=== PATIENT | male | born 1930 | race Caucasian/White ===

== ENCOUNTER 2017-09-29 19:47 | Inpatient (IN) | payer MEDICARE, OTHER ==
[2017-09-29] MEDS: SOD CHLORIDE 0.9% 1,000 ML IV ×2 (20:49→23:52)
[2017-09-29 21:40] LABS: ADD MAN DIFF? NO
[2017-09-29 21:45] LABS: WHITE BLOOD COUNT 10.7 10^3/ul (4.8-10.8)
[2017-09-29 21:45] LABS: BASOPHILS % 0.1 % (0.0-2.0); EOSINOPHILS % 0.1 % (0.0-7.0); HEMATOCRIT 42.6 % (42.0-52.0); HEMOGLOBIN 12.5 g/dl (14.0-18.0); LYMPHOCYTES # 1.8 10^3/ul (0.8-2.9); LYMPHOCYTES % 16.9 % (15.0-51.0); MEAN CORPUSCULAR HEMOGLOBIN 27.8 pg (29.0-33.0); MEAN CORPUSCULAR HGB CONC 29.3 g/dl (32.0-37.0); MEAN CORPUSCULAR VOLUME 94.9 fl (82.0-101.0); MEAN PLATELET VOLUME 10.2 fl (7.4-10.4); MONOCYTE # 0.4 10^3/ul (0.3-0.9); MONOCYTES % 4.1 % (0.0-11.0); NEUTROPHIL # 8.4 10^3/ul (1.6-7.5); NEUTROPHILS % 78.3 % (39.0-77.0); PLATELET COUNT 306 10^3/UL (140-415); RED BLOOD COUNT 4.49 10^6/ul (4.70-6.10); RED CELL DISTRIBUTION WIDTH 16.8 % (11.5-14.5)
[2017-09-29 21:56] LABS: ADD UMIC YES; UR ASCORBIC ACID NEGATIVE (NEGATIVE); UR BACTERIA MANY /HPF (NONE SEEN); UR BILIRUBIN (Dip) NEGATIVE (NEGATIVE); UR BLOOD (Dip) 1+ mg/dL (NEGATIVE); UR CLARITY SLIGHTLY CLOUDY (CLEAR); UR COLOR YELLOW (YELLOW); UR GLUCOSE (Dip) NEGATIVE (NEGATIVE); UR KETONES (Dip) TRACE mg/dL (NEGATIVE); UR LEUKOCYTE ESTERASE (Dip) TRACE Leu/ul (NEGATIVE); UR MUCUS FEW /HPF (NONE SEEN); UR NITRITE (Dip) POSITIVE (NEGATIVE); UR RBC 0 /HPF (0-5); UR SPECIFIC GRAVITY (Dip) 1.018 (1.003-1.030); UR TOTAL PROTEIN (Dip) 1+ mg/dl (NEGATIVE); UR UROBILINOGEN (Dip) NEGATIVE (NEGATIVE); UR WBC 10 /HPF (0-5)
[2017-09-29 22:13] LABS: AMMONIA < 9 umol/l (9-30)
[2017-09-29 22:14] LABS: LACTIC ACID 2.3 mmol/L (0.5-2.0)
[2017-09-29 22:20] LABS: AMPHETAMINE/METHAMPHETAMINE Negative (NEGATIVE); BARBITURATES Negative (NEGATIVE); BENZODIAZEPINES Negative (NEGATIVE); CANNABINOIDS Negative (NEGATIVE); COCAINE Negative (NEGATIVE); OPIATES Negative (NEGATIVE)
[2017-09-29] MEDS: CEFEPIME 1GM/50 ML (PMX) 50 ML IVPB (23:51)
[2017-09-30 00:03] LABS: ACETAMINOPHEN < 10.0 ug/ml (10.0-30.0); SALICYLATE < 1.0 mg/dl (5.0-30.0)
[2017-09-30 00:15] LABS: ETHANOL < 10.0 mg/dl
[2017-09-30 00:19] LABS: T3 UPTAKE 40.5 % (23.5-40.5); T4 (THYROXINE) 8.4 ug/dl (5.5-11.0)
[2017-09-30 00:23] LABS: ALANINE AMINOTRANSFERASE 22 IU/L (13-69); ALBUMIN 2.7 g/dl (3.3-4.9); ALBUMIN/GLOBULIN RATIO 0.55; ALKALINE PHOSPHATASE 102 IU/L (42-121); ANION GAP 13 (8-16); ASPARTATE AMINO TRANSFERASE 31 IU/L (15-46); BLOOD UREA NITROGEN 43 mg/dl (7-20); CALCIUM 8.9 mg/dl (8.4-10.2); CARBON DIOXIDE 31 mmol/L (21-31); CHLORIDE 133 mmol/L (97-110); CREATININE 1.22 mg/dl (0.61-1.24); GLUCOSE 102 mg/dl (70-220); TOTAL PROTEIN 7.6 g/dl (6.1-8.1)
[2017-09-30 00:30] LABS: SODIUM 174 mmol/L (135-144)
[2017-09-30 00:31] LABS: POTASSIUM 2.9 mmol/L (3.5-5.1)
[2017-09-30] MEDS: hydrALAzine 20 MG INJ IV (00:36)
[2017-09-30 01:02] LABS: TROPONIN-I 0.333 ng/ml (0.00-0.12)
[2017-09-30] MEDS: SOD CHLORIDE 0.9% 1,000 ML IV (01:18)
[2017-09-30] MEDS ORDERED: ASPIRIN 300 MG SUPP PR (01:19)
[2017-09-30] MEDS: POTASSIUM CHLORIDE 50 ML IVPB ×6 (01:20→13:14)
[2017-09-30] MEDS: ASPIRIN 81 MG TAB PO ×2 (01:24)
[2017-09-30] MEDS ORDERED: ASPIRIN 81 MG TAB PO (01:30)
[2017-09-30] MEDS: ASPIRIN 300 MG SUPP PR (02:18)
[2017-09-30] MEDS ORDERED: NA PHOSPHATE/BIPHOS 133 ML ENEMA PR (02:30)
[2017-09-30] MEDS ORDERED: HYDROCODONE/APAP (5/325) TAB PO (02:30)
[2017-09-30] MEDS ORDERED: morphine 2 MG INJ IV (02:30)
[2017-09-30] MEDS ORDERED: NACL 0.9% 3 ML SYG IV (02:30)
[2017-09-30] MEDS ORDERED: DOCUSATE SODIUM 100 MG CAP PO (02:30)
[2017-09-30] MEDS ORDERED: ONDANSETRON 4 MG INJ IV (02:30)
[2017-09-30] MEDS ORDERED: NITROGLYCERIN (SL) 0.4 MG TAB SL (02:30)
[2017-09-30] MEDS ORDERED: ACETAMINOPHEN 325 MG TAB PO (02:30)
[2017-09-30] MEDS: DEXTROSE 5% 1,000 ML IV ×4 (04:42→17:34)
[2017-09-30 05:07] LABS: ADD MAN DIFF? NO
[2017-09-30 05:12] LABS: WHITE BLOOD COUNT 9.8 10^3/ul (4.8-10.8)
[2017-09-30 05:12] LABS: BASOPHILS % 0.1 % (0.0-2.0); EOSINOPHILS % 0.3 % (0.0-7.0); HEMATOCRIT 33.5 % (42.0-52.0); HEMOGLOBIN 10.2 g/dl (14.0-18.0); LYMPHOCYTES # 1.3 10^3/ul (0.8-2.9); LYMPHOCYTES % 13.3 % (15.0-51.0); MEAN CORPUSCULAR HEMOGLOBIN 28.3 pg (29.0-33.0); MEAN CORPUSCULAR HGB CONC 30.4 g/dl (32.0-37.0); MEAN CORPUSCULAR VOLUME 93.1 fl (82.0-101.0); MEAN PLATELET VOLUME 9.9 fl (7.4-10.4); MONOCYTE # 0.5 10^3/ul (0.3-0.9); MONOCYTES % 4.7 % (0.0-11.0); NEUTROPHILS % 81.1 % (39.0-77.0); PLATELET COUNT 228 10^3/UL (140-415); RED CELL DISTRIBUTION WIDTH 16.8 % (11.5-14.5)
[2017-09-30 05:38] LABS: LACTIC ACID 1.2 mmol/L (0.5-2.0)
[2017-09-30 05:56] LABS: FREE T4 (FREE THYROXINE) 1.19 ng/dl (0.85-1.93)
[2017-09-30 06:10] LABS: ANION GAP 12 (8-16); BLOOD UREA NITROGEN 35 mg/dl (7-20); CALCIUM 7.8 mg/dl (8.4-10.2); CARBON DIOXIDE 27 mmol/L (21-31); CHLORIDE 137 mmol/L (97-110); CREATINE KINASE 74 IU/L (23-200); CREATININE 1.11 mg/dl (0.61-1.24); GLUCOSE 88 mg/dl (70-220); POTASSIUM 3.2 mmol/L (3.5-5.1)
[2017-09-30 06:14] LABS: SODIUM 173 mmol/L (135-144)
[2017-09-30] MEDS: CEFTRIAXONE 2 GM/50 ML (PMX) 50 ML IVPB (06:18)
[2017-09-30 06:23] LABS: CK-MB 2.95 ng/ml (0.0-2.4); TROPONIN-I 0.308 ng/ml (0.00-0.12)
[2017-09-30 09:05] LABS: CREATINE KINASE 68 IU/L (23-200)
[2017-09-30 09:18] LABS: CK INDEX 4.1
[2017-09-30 09:19] LABS: CK-MB 2.81 ng/ml (0.0-2.4); TROPONIN-I 0.311 ng/ml (0.00-0.12)
[2017-09-30] MEDS: LEVOTHYROXINE 25 MCG TAB PO (09:41)
[2017-09-30] MEDS: CYANOCOBALAMIN 500 MCG TAB PO (09:42)
[2017-09-30] MEDS: EZETIMIBE 10 MG TAB PO (09:42)
[2017-09-30] MEDS: CLOPIDOGREL 75 MG TAB PO (09:42)
[2017-09-30] MEDS: GABAPENTIN 100 MG CAP PO (09:43)
[2017-09-30] MEDS: ENOXAPARIN 60 MG/0.6 ML SYG SC (09:46)
[2017-09-30] MEDS: FAMOTIDINE 20 MG INJ IV (09:47)
[2017-09-30 10:03] LABS: ADD UMIC YES; UR AMORPHOUS CRYSTAL FEW /HPF (NONE SEEN); UR ASCORBIC ACID NEGATIVE (NEGATIVE); UR BACTERIA MANY /HPF (NONE SEEN); UR BILIRUBIN (Dip) NEGATIVE (NEGATIVE); UR BLOOD (Dip) 2+ mg/dL (NEGATIVE); UR CLARITY CLOUDY (CLEAR); UR COLOR YELLOW (YELLOW); UR GLUCOSE (Dip) NEGATIVE (NEGATIVE); UR KETONES (Dip) TRACE mg/dL (NEGATIVE); UR LEUKOCYTE ESTERASE (Dip) 2+ Leu/ul (NEGATIVE); UR MUCUS MODERATE /HPF (NONE SEEN); UR NITRITE (Dip) POSITIVE (NEGATIVE); UR RBC 51 /HPF (0-5); UR SPECIFIC GRAVITY (Dip) 1.016 (1.003-1.030); UR TOTAL PROTEIN (Dip) 1+ mg/dl (NEGATIVE); UR UROBILINOGEN (Dip) NEGATIVE (NEGATIVE); UR WBC 90 /HPF (0-5)
[2017-09-30 10:49] LABS: CREATININE,URINE RANDOM 58.21 mg/dl (20-370)
[2017-09-30 10:49] LABS: SODIUM,URINE RANDOM 106 mmol/L (30-90)
[2017-09-30 10:53] LABS: OSMOLALITY 354 mOsm/kg (280-295)
[2017-09-30 14:19] LABS: LACTIC ACID 1.4 mmol/L (0.5-2.0)
[2017-09-30 14:43] LABS: ANION GAP 11 (8-16); BLOOD UREA NITROGEN 33 mg/dl (7-20); CALCIUM 7.9 mg/dl (8.4-10.2); CARBON DIOXIDE 26 mmol/L (21-31); CHLORIDE 132 mmol/L (97-110); CREATININE 0.96 mg/dl (0.61-1.24); GLUCOSE 180 mg/dl (70-220); POTASSIUM 3.7 mmol/L (3.5-5.1)
[2017-09-30 14:46] LABS: SODIUM 165 mmol/L (135-144)
[2017-09-30 16:59] LABS: OSMOLALITY,URINE 594 mOsm/kg (250-1200)
[2017-09-30] MEDS: CALCITRIOL 0.25 MCG CAP PO (17:33)
[2017-09-30 19:16] LABS: LACTIC ACID 2.1 mmol/L (0.5-2.0)
[2017-09-30] MEDS: HEPARIN 5,000 UNIT/0.5 ML VIAL SC (21:13)
[2017-10-01 01:15] LABS: LACTIC ACID 1.4 mmol/L (0.5-2.0)
[2017-10-01] MEDS: DEXTROSE 5% 1,000 ML IV ×2 (05:28→23:22)
[2017-10-01 05:42] LABS: ADD MAN DIFF? NO
[2017-10-01] MEDS: CEFTRIAXONE 2 GM/50 ML (PMX) 50 ML IVPB (05:48)
[2017-10-01 06:07] LABS: BASOPHILS % 0.1 % (0.0-2.0); EOSINOPHILS # 0.1 10^3/ul (0.0-0.5); EOSINOPHILS % 0.6 % (0.0-7.0); HEMATOCRIT 31.3 % (42.0-52.0); HEMOGLOBIN 9.4 g/dl (14.0-18.0); LYMPHOCYTES # 1.4 10^3/ul (0.8-2.9); LYMPHOCYTES % 17.7 % (15.0-51.0); MEAN CORPUSCULAR HEMOGLOBIN 27.9 pg (29.0-33.0); MEAN CORPUSCULAR VOLUME 92.9 fl (82.0-101.0); MEAN PLATELET VOLUME 10.3 fl (7.4-10.4); MONOCYTE # 0.4 10^3/ul (0.3-0.9); MONOCYTES % 5.1 % (0.0-11.0); NEUTROPHIL # 6.1 10^3/ul (1.6-7.5); PLATELET COUNT 211 10^3/UL (140-415); RED BLOOD COUNT 3.37 10^6/ul (4.70-6.10); RED CELL DISTRIBUTION WIDTH 17.2 % (11.5-14.5)
[2017-10-01 06:07] LABS: WHITE BLOOD COUNT 8.1 10^3/ul (4.8-10.8)
[2017-10-01 06:34] LABS: ANION GAP 9 (8-16); BLOOD UREA NITROGEN 27 mg/dl (7-20); CALCIUM 7.9 mg/dl (8.4-10.2); CARBON DIOXIDE 27 mmol/L (21-31); CHLORIDE 125 mmol/L (97-110); CREATININE 1.07 mg/dl (0.61-1.24); GLUCOSE 66 mg/dl (70-220); MAGNESIUM 1.9 mg/dl (1.7-2.5); PHOSPHORUS 2.6 mg/dl (2.5-4.9); SODIUM 158 mmol/L (135-144)
[2017-10-01 06:45] LABS: LACTIC ACID 1.4 mmol/L (0.5-2.0)
[2017-10-01 07:26] LABS: CHOL/HDL RATIO 4.5 RATIO; HDL CHOLESTEROL 18 mg/dl (31-75); LDL CHOLESTEROL,CALCULATED 47 mg/dl; TRIGLYCERIDES 87 mg/dl (0-149)
[2017-10-01 07:26] LABS: CHOLESTEROL 82 mg/dl (100-200)
[2017-10-01 07:34] LABS: HEMOGLOBIN A1C 5.7 % (0-5.9)
[2017-10-01 07:57] LABS: THYROID STIMULATING HORMONE 0.727 MIU/L (0.465-4.680)
[2017-10-01] MEDS: LEVOTHYROXINE 25 MCG TAB PO (07:57)
[2017-10-01] MEDS: GABAPENTIN 100 MG CAP PO (08:43)
[2017-10-01] MEDS: CYANOCOBALAMIN 500 MCG TAB PO (08:43)
[2017-10-01] MEDS: EZETIMIBE 10 MG TAB PO (08:43)
[2017-10-01] MEDS: CLOPIDOGREL 75 MG TAB PO (08:43)
[2017-10-01] MEDS: CALCITRIOL 0.25 MCG CAP PO (08:43)
[2017-10-01] MEDS: POTASSIUM CHLORIDE 50 ML IVPB (08:44)
[2017-10-01] MEDS: HEPARIN 5,000 UNIT/0.5 ML VIAL SC ×2 (08:46→21:18)
[2017-10-01] MEDS: FAMOTIDINE 20 MG INJ IV (08:46)
[2017-10-01 10:32] LABS: IRON 25 ug/dl (35-150)
[2017-10-01] MEDS: MUPIROCIN 2% 22 GM OINT TOP ×2 (10:34→21:20)
[2017-10-01] MEDS: POTASSIUM CHLORIDE 20 MEQ POWDER FOR ORAL SOLN NGT (10:35)
[2017-10-01 10:43] LABS: % IRON SATURATION 20 % SAT (22-52); TOTAL IRON BINDING CAPACITY 126 ug/dl (241-421)
[2017-10-01] MEDS: BALSAM PERU/CASTOR OIL 60 GM TUBE TOP (13:10)
[2017-10-01 14:52] LABS: CREATININE, RANDOM URINE 72 mg/dL (20-370); MICROALBUMIN 3.9 mg/dL; MICROALBUMIN/CREATININE RATIO 54 (<30)
[2017-10-01 15:02] LABS: ANION GAP 8 (8-16); BLOOD UREA NITROGEN 22 mg/dl (7-20); CALCIUM 8.1 mg/dl (8.4-10.2); CARBON DIOXIDE 27 mmol/L (21-31); CHLORIDE 122 mmol/L (97-110); CREATININE 1.05 mg/dl (0.61-1.24); GLUCOSE 170 mg/dl (70-220); POTASSIUM 3.8 mmol/L (3.5-5.1); SODIUM 153 mmol/L (135-144)
[2017-10-01 15:12] LABS: LACTIC ACID 1.1 mmol/L (0.5-2.0)
[2017-10-01 21:18] LABS: LACTIC ACID 1.4 mmol/L (0.5-2.0)
[2017-10-02] MEDS: CEFTRIAXONE 2 GM/50 ML (PMX) 50 ML IVPB (05:49)
[2017-10-02 06:24] LABS: ADD MAN DIFF? NO
[2017-10-02 06:34] LABS: BASOPHILS % 0.1 % (0.0-2.0); EOSINOPHILS # 0.1 10^3/ul (0.0-0.5); EOSINOPHILS % 0.7 % (0.0-7.0); HEMATOCRIT 31.7 % (42.0-52.0); HEMOGLOBIN 9.6 g/dl (14.0-18.0); LYMPHOCYTES # 1.5 10^3/ul (0.8-2.9); MEAN CORPUSCULAR HEMOGLOBIN 27.9 pg (29.0-33.0); MEAN CORPUSCULAR HGB CONC 30.3 g/dl (32.0-37.0); MEAN CORPUSCULAR VOLUME 92.2 fl (82.0-101.0); MEAN PLATELET VOLUME 10.1 fl (7.4-10.4); MONOCYTE # 0.3 10^3/ul (0.3-0.9); NEUTROPHIL # 4.8 10^3/ul (1.6-7.5); NEUTROPHILS % 72.6 % (39.0-77.0); PLATELET COUNT 193 10^3/UL (140-415); RED BLOOD COUNT 3.44 10^6/ul (4.70-6.10); RED CELL DISTRIBUTION WIDTH 16.6 % (11.5-14.5)
[2017-10-02 06:34] LABS: WHITE BLOOD COUNT 6.7 10^3/ul (4.8-10.8)
[2017-10-02 06:57] LABS: ANION GAP 10 (8-16); BLOOD UREA NITROGEN 18 mg/dl (7-20); CARBON DIOXIDE 26 mmol/L (21-31); CHLORIDE 123 mmol/L (97-110); CREATININE 1.04 mg/dl (0.61-1.24); GLUCOSE 82 mg/dl (70-220); POTASSIUM 3.7 mmol/L (3.5-5.1); SODIUM 155 mmol/L (135-144)
[2017-10-02 07:13] LABS: PHOSPHORUS 2.4 mg/dl (2.5-4.9)
[2017-10-02 07:13] LABS: MAGNESIUM 1.9 mg/dl (1.7-2.5)
[2017-10-02] MEDS: GABAPENTIN 100 MG CAP PO (08:25)
[2017-10-02] MEDS: FAMOTIDINE 20 MG INJ IV (08:25)
[2017-10-02] MEDS: CYANOCOBALAMIN 500 MCG TAB PO (08:25)
[2017-10-02] MEDS: EZETIMIBE 10 MG TAB PO (08:25)
[2017-10-02] MEDS: CALCITRIOL 0.25 MCG CAP PO (08:25)
[2017-10-02] MEDS: LEVOTHYROXINE 25 MCG TAB PO (08:25)
[2017-10-02] MEDS: CLOPIDOGREL 75 MG TAB PO (08:25)
[2017-10-02] MEDS: HEPARIN 5,000 UNIT/0.5 ML VIAL SC ×2 (08:33→21:37)
[2017-10-02] MEDS: MUPIROCIN 2% 22 GM OINT TOP ×2 (08:35→21:36)
[2017-10-02] MEDS: BALSAM PERU/CASTOR OIL 60 GM TUBE TOP (08:36)
[2017-10-02] MEDS: hydrALAzine 20 MG INJ IV (12:19)
[2017-10-02] MEDS: LORAZEPAM 2 MG INJ IV (13:53)
[2017-10-02 14:43] LABS: ANION GAP 12 (8-16); BLOOD UREA NITROGEN 17 mg/dl (7-20); CALCIUM 8.6 mg/dl (8.4-10.2); CARBON DIOXIDE 24 mmol/L (21-31); CHLORIDE 119 mmol/L (97-110); CREATININE 0.98 mg/dl (0.61-1.24); GLUCOSE 82 mg/dl (70-220); POTASSIUM 3.6 mmol/L (3.5-5.1); SODIUM 151 mmol/L (135-144)
[2017-10-02] MEDS: CIPROFLOXACIN 400 MG in D5W 200 ML IVPB ×2 (16:09→22:09)
[2017-10-02] MEDS: DEXTROSE 5% 1,000 ML IV (18:40)
[2017-10-03] MEDS: LEVOTHYROXINE 25 MCG TAB PO ×2 (06:00)
[2017-10-03] MEDS ORDERED: PENDING SANTYL ORDER FOR WOUND CARE XX (07:30)
[2017-10-03] MEDS: CALCITRIOL 0.25 MCG CAP PO (08:14)
[2017-10-03] MEDS: CLOPIDOGREL 75 MG TAB PO (08:14)
[2017-10-03] MEDS: CYANOCOBALAMIN 500 MCG TAB PO (08:15)
[2017-10-03] MEDS: EZETIMIBE 10 MG TAB PO (08:15)
[2017-10-03] MEDS: GABAPENTIN 100 MG CAP PO (08:15)
[2017-10-03] MEDS: MUPIROCIN 2% 22 GM OINT TOP ×2 (08:17→21:26)
[2017-10-03] MEDS: BALSAM PERU/CASTOR OIL 60 GM TUBE TOP (08:17)
[2017-10-03] MEDS: HEPARIN 5,000 UNIT/0.5 ML VIAL SC ×2 (08:17→21:28)
[2017-10-03] MEDS: LORAZEPAM 2 MG INJ IV (08:18)
[2017-10-03] MEDS: FAMOTIDINE 20 MG INJ IV (08:30)
[2017-10-03] MEDS: CIPROFLOXACIN 400 MG in D5W 200 ML IVPB ×2 (08:30→21:26)
[2017-10-03 09:42] LABS: ADD MAN DIFF? NO
[2017-10-03 09:52] LABS: WHITE BLOOD COUNT 5.8 10^3/ul (4.8-10.8)
[2017-10-03 09:52] LABS: BASOPHILS % 0.2 % (0.0-2.0); EOSINOPHILS # 0.1 10^3/ul (0.0-0.5); EOSINOPHILS % 0.9 % (0.0-7.0); HEMATOCRIT 28.2 % (42.0-52.0); HEMOGLOBIN 8.7 g/dl (14.0-18.0); LYMPHOCYTES # 0.8 10^3/ul (0.8-2.9); LYMPHOCYTES % 14.3 % (15.0-51.0); MEAN CORPUSCULAR HEMOGLOBIN 27.9 pg (29.0-33.0); MEAN CORPUSCULAR HGB CONC 30.9 g/dl (32.0-37.0); MEAN CORPUSCULAR VOLUME 90.4 fl (82.0-101.0); MEAN PLATELET VOLUME 10.6 fl (7.4-10.4); MONOCYTE # 0.2 10^3/ul (0.3-0.9); MONOCYTES % 3.7 % (0.0-11.0); NEUTROPHIL # 4.6 10^3/ul (1.6-7.5); NEUTROPHILS % 80.2 % (39.0-77.0); PLATELET COUNT 185 10^3/UL (140-415); RED BLOOD COUNT 3.12 10^6/ul (4.70-6.10); RED CELL DISTRIBUTION WIDTH 15.8 % (11.5-14.5)
[2017-10-03 10:07] LABS: ANION GAP 7 (8-16); BLOOD UREA NITROGEN 13 mg/dl (7-20); CARBON DIOXIDE 27 mmol/L (21-31); CHLORIDE 114 mmol/L (97-110); CREATININE 0.82 mg/dl (0.61-1.24); GLUCOSE 109 mg/dl (70-220); MAGNESIUM 1.7 mg/dl (1.7-2.5); POTASSIUM 3.2 mmol/L (3.5-5.1); SODIUM 145 mmol/L (135-144)
[2017-10-03 10:07] LABS: PHOSPHORUS 2.8 mg/dl (2.5-4.9)
[2017-10-03] MEDS: POTASSIUM CHLORIDE 20 MEQ POWDER FOR ORAL SOLN NGT (12:26)
[2017-10-03] MEDS: MAGNESIUM HYDROXIDE 30ML CUP PO (12:34)
[2017-10-03] MEDS: DEXTROSE 5% 1,000 ML IV (21:28)
[2017-10-04] MEDS: hydrALAzine 20 MG INJ IV (04:32)
[2017-10-04] MEDS: MAGNESIUM HYDROXIDE 30ML CUP PO (05:51)
[2017-10-04] MEDS: LEVOTHYROXINE 25 MCG TAB PO (05:51)
[2017-10-04 08:12] LABS: ADD MAN DIFF? NO
[2017-10-04 08:17] LABS: WHITE BLOOD COUNT 6.8 10^3/ul (4.8-10.8)
[2017-10-04 08:17] LABS: BASOPHILS % 0.1 % (0.0-2.0); EOSINOPHILS # 0.1 10^3/ul (0.0-0.5); EOSINOPHILS % 0.7 % (0.0-7.0); HEMATOCRIT 33.5 % (42.0-52.0); HEMOGLOBIN 10.5 g/dl (14.0-18.0); LYMPHOCYTES # 1.8 10^3/ul (0.8-2.9); MEAN CORPUSCULAR HEMOGLOBIN 27.7 pg (29.0-33.0); MEAN CORPUSCULAR HGB CONC 31.3 g/dl (32.0-37.0); MEAN CORPUSCULAR VOLUME 88.4 fl (82.0-101.0); MEAN PLATELET VOLUME 10.6 fl (7.4-10.4); MONOCYTE # 0.2 10^3/ul (0.3-0.9); MONOCYTES % 3.4 % (0.0-11.0); NEUTROPHIL # 4.7 10^3/ul (1.6-7.5); NEUTROPHILS % 68.2 % (39.0-77.0); PLATELET COUNT 228 10^3/UL (140-415); RED BLOOD COUNT 3.79 10^6/ul (4.70-6.10); RED CELL DISTRIBUTION WIDTH 15.6 % (11.5-14.5)
[2017-10-04 08:49] LABS: ANION GAP 9 (8-16); BLOOD UREA NITROGEN 9 mg/dl (7-20); CALCIUM 8.8 mg/dl (8.4-10.2); CARBON DIOXIDE 28 mmol/L (21-31); CHLORIDE 112 mmol/L (97-110); CREATININE 0.88 mg/dl (0.61-1.24); GLUCOSE 109 mg/dl (70-220); POTASSIUM 3.3 mmol/L (3.5-5.1); SODIUM 146 mmol/L (135-144)
[2017-10-04] MEDS: GABAPENTIN 100 MG CAP PO (09:17)
[2017-10-04] MEDS: EZETIMIBE 10 MG TAB PO (09:17)
[2017-10-04] MEDS: CYANOCOBALAMIN 500 MCG TAB PO (09:17)
[2017-10-04] MEDS: CALCITRIOL 0.25 MCG CAP PO (09:17)
[2017-10-04] MEDS: LORAZEPAM 2 MG INJ IV (09:17)
[2017-10-04] MEDS: CLOPIDOGREL 75 MG TAB PO (09:17)
[2017-10-04] MEDS: BALSAM PERU/CASTOR OIL 60 GM TUBE TOP (09:18)
[2017-10-04] MEDS: MUPIROCIN 2% 22 GM OINT TOP ×2 (09:18→21:08)
[2017-10-04] MEDS: HEPARIN 5,000 UNIT/0.5 ML VIAL SC ×2 (09:29→21:05)
[2017-10-04] MEDS: CIPROFLOXACIN 400 MG in D5W 200 ML IVPB ×2 (09:34→20:48)
[2017-10-04] MEDS: FAMOTIDINE 20 MG INJ IV (09:34)
[2017-10-04 09:38] LABS: PHOSPHORUS 2.9 mg/dl (2.5-4.9)
[2017-10-04 09:38] LABS: MAGNESIUM 1.8 mg/dl (1.7-2.5)
[2017-10-05] MEDS: LORAZEPAM 2 MG INJ IV ×2 (01:15→22:32)
[2017-10-05] MEDS: LEVOTHYROXINE 25 MCG TAB PO (06:59)
[2017-10-05 09:04] LABS: ADD MAN DIFF? NO
[2017-10-05 09:32] LABS: ANION GAP 5 (8-16); BLOOD UREA NITROGEN 9 mg/dl (7-20); CALCIUM 8.1 mg/dl (8.4-10.2); CARBON DIOXIDE 30 mmol/L (21-31); CHLORIDE 113 mmol/L (97-110); CREATININE 0.74 mg/dl (0.61-1.24); GLUCOSE 79 mg/dl (70-220); POTASSIUM 3.8 mmol/L (3.5-5.1); SODIUM 144 mmol/L (135-144)
[2017-10-05] MEDS: EZETIMIBE 10 MG TAB PO (09:48)
[2017-10-05] MEDS: GABAPENTIN 100 MG CAP PO (09:48)
[2017-10-05] MEDS: FAMOTIDINE 20 MG INJ IV (09:48)
[2017-10-05] MEDS: CIPROFLOXACIN 400 MG in D5W 200 ML IVPB ×2 (09:48→21:46)
[2017-10-05] MEDS: CALCITRIOL 0.25 MCG CAP PO (09:48)
[2017-10-05] MEDS: CLOPIDOGREL 75 MG TAB PO (09:49)
[2017-10-05] MEDS: CYANOCOBALAMIN 500 MCG TAB PO (09:49)
[2017-10-05] MEDS: MUPIROCIN 2% 22 GM OINT TOP ×2 (09:49→21:00)
[2017-10-05] MEDS: BALSAM PERU/CASTOR OIL 60 GM TUBE TOP (09:50)
[2017-10-05] MEDS: HEPARIN 5,000 UNIT/0.5 ML VIAL SC ×2 (09:52→21:48)
[2017-10-05 09:56] LABS: PHOSPHORUS 3.1 mg/dl (2.5-4.9)
[2017-10-05 09:56] LABS: MAGNESIUM 2.1 mg/dl (1.7-2.5)
[2017-10-05 10:28] LABS: BASOPHILS % 0.2 % (0.0-2.0); EOSINOPHILS % 0.8 % (0.0-7.0); HEMATOCRIT 30.7 % (42.0-52.0); HEMOGLOBIN 9.7 g/dl (14.0-18.0); LYMPHOCYTES # 1.1 10^3/ul (0.8-2.9); LYMPHOCYTES % 22.2 % (15.0-51.0); MEAN CORPUSCULAR HEMOGLOBIN 27.9 pg (29.0-33.0); MEAN CORPUSCULAR HGB CONC 31.6 g/dl (32.0-37.0); MEAN CORPUSCULAR VOLUME 88.2 fl (82.0-101.0); MEAN PLATELET VOLUME 10.6 fl (7.4-10.4); MONOCYTE # 0.2 10^3/ul (0.3-0.9); MONOCYTES % 3.4 % (0.0-11.0); NEUTROPHIL # 3.5 10^3/ul (1.6-7.5); NEUTROPHILS % 72.8 % (39.0-77.0); PLATELET COUNT 177 10^3/UL (140-415); RED BLOOD COUNT 3.48 10^6/ul (4.70-6.10); RED CELL DISTRIBUTION WIDTH 15.4 % (11.5-14.5)
[2017-10-05 10:28] LABS: WHITE BLOOD COUNT 4.7 10^3/ul (4.8-10.8)
[2017-10-06] MEDS: LEVOTHYROXINE 25 MCG TAB PO (06:35)
[2017-10-06 06:42] LABS: WHITE BLOOD COUNT 6.8 10^3/ul (4.8-10.8)
[2017-10-06 06:42] LABS: HEMATOCRIT 29.4 % (42.0-52.0); HEMOGLOBIN 9.6 g/dl (14.0-18.0); MEAN CORPUSCULAR HGB CONC 32.7 g/dl (32.0-37.0); MEAN CORPUSCULAR VOLUME 85.7 fl (82.0-101.0); MEAN PLATELET VOLUME 10.9 fl (7.4-10.4); PLATELET COUNT 208 10^3/UL (140-415); POSITIVE DIFF @See below; RED BLOOD COUNT 3.43 10^6/ul (4.70-6.10); RED CELL DISTRIBUTION WIDTH 15.6 % (11.5-14.5)
[2017-10-06 06:54] LABS: ADD MAN DIFF? YES
[2017-10-06 06:56] LABS: ANION GAP 9 (8-16); BLOOD UREA NITROGEN 9 mg/dl (7-20); CALCIUM 8.5 mg/dl (8.4-10.2); CARBON DIOXIDE 27 mmol/L (21-31); CHLORIDE 109 mmol/L (97-110); CREATININE 0.85 mg/dl (0.61-1.24); GLUCOSE 68 mg/dl (70-220); POTASSIUM 3.3 mmol/L (3.5-5.1); SODIUM 142 mmol/L (135-144)
[2017-10-06 06:56] LABS: PHOSPHORUS 3.3 mg/dl (2.5-4.9)
[2017-10-06 09:52] LABS: BAND NEUTROPHILS #M 0.2 10^3/ul (0.0-0.6); BAND NEUTROPHILS % (M) 4 % (0-4); EOSINOPHILS % (M) 1 % (0-7); GIANT THROMBO% (M) 1 % (0-0); LYMPHOCYTES #M 0.2 10^3/ul (0.8-2.9); LYMPHOCYTES % (M) 4 % (15-51); MONOCYTE #M 0.1 10^3/ul (0.3-0.9); MONOCYTES % (M) 2 % (0-11); PLATELET ESTIMATE NORMAL; POLYCHROMASIA 1+ (0-0); SEG NEUT #M 6.1 10^3/ul (1.7-7.5); SEGMENTED NEUTROPHILS (M) % 89 % (39-77); SMUDGE%M 5 % (0-0)
[2017-10-06] MEDS: FAMOTIDINE 20 MG INJ IV (10:09)
[2017-10-06] MEDS: CYANOCOBALAMIN 500 MCG TAB PO (10:10)
[2017-10-06] MEDS: EZETIMIBE 10 MG TAB PO (10:10)
[2017-10-06] MEDS: CALCITRIOL 0.25 MCG CAP PO (10:10)
[2017-10-06] MEDS: CIPROFLOXACIN 400 MG in D5W 200 ML IVPB ×2 (10:11→21:00)
[2017-10-06] MEDS: CLOPIDOGREL 75 MG TAB PO (10:11)
[2017-10-06] MEDS: GABAPENTIN 100 MG CAP PO (10:11)
[2017-10-06] MEDS: HEPARIN 5,000 UNIT/0.5 ML VIAL SC ×2 (10:28→20:59)
[2017-10-06] MEDS: BALSAM PERU/CASTOR OIL 60 GM TUBE TOP (10:42)
[2017-10-06] MEDS: MUPIROCIN 2% 22 GM OINT TOP ×2 (10:42→20:59)
[2017-10-06] MEDS ORDERED: hydrALAzine 20 MG INJ IV (12:30)
[2017-10-06] MEDS: ALBUTEROL/IPRATROPIUM (NEB) 3 ML AMP HHN ×3 (14:22→20:17)
[2017-10-06] MEDS: LORAZEPAM 2 MG INJ IV (18:21)
[2017-10-06] MEDS: PANTOPRAZOLE 40 MG INJ IV (18:21)
[2017-10-07] MEDS: PANTOPRAZOLE 40 MG INJ IV ×2 (06:18→18:41)
[2017-10-07] MEDS: LEVOTHYROXINE 25 MCG TAB PO (06:18)
[2017-10-07 06:27] LABS: ADD MAN DIFF? NO
[2017-10-07 06:28] LABS: BASOPHILS % 0.1 % (0.0-2.0); EOSINOPHILS % 0.4 % (0.0-7.0); HEMATOCRIT 27.6 % (42.0-52.0); HEMOGLOBIN 9.1 g/dl (14.0-18.0); LYMPHOCYTES % 12.6 % (15.0-51.0); MEAN CORPUSCULAR HEMOGLOBIN 28.4 pg (29.0-33.0); MEAN CORPUSCULAR VOLUME 86.3 fl (82.0-101.0); MEAN PLATELET VOLUME 10.2 fl (7.4-10.4); MONOCYTE # 0.2 10^3/ul (0.3-0.9); MONOCYTES % 3.1 % (0.0-11.0); NEUTROPHIL # 6.4 10^3/ul (1.6-7.5); NEUTROPHILS % 83.4 % (39.0-77.0); PLATELET COUNT 191 10^3/UL (140-415); RED CELL DISTRIBUTION WIDTH 15.8 % (11.5-14.5)
[2017-10-07 06:28] LABS: WHITE BLOOD COUNT 7.6 10^3/ul (4.8-10.8)
[2017-10-07 07:03] LABS: PHOSPHORUS 3.9 mg/dl (2.5-4.9)
[2017-10-07 07:05] LABS: ANION GAP 9 (8-16); BLOOD UREA NITROGEN 9 mg/dl (7-20); CALCIUM 8.5 mg/dl (8.4-10.2); CARBON DIOXIDE 28 mmol/L (21-31); CHLORIDE 111 mmol/L (97-110); CREATININE 1.13 mg/dl (0.61-1.24); GLUCOSE 73 mg/dl (70-220); POTASSIUM 3.1 mmol/L (3.5-5.1); SODIUM 145 mmol/L (135-144)
[2017-10-07] MEDS: ALBUTEROL/IPRATROPIUM (NEB) 3 ML AMP HHN ×4 (08:42→20:00)
[2017-10-07] MEDS: GABAPENTIN 100 MG CAP PO (09:00)
[2017-10-07] MEDS: MUPIROCIN 2% 22 GM OINT TOP ×2 (09:00→20:32)
[2017-10-07] MEDS: CYANOCOBALAMIN 500 MCG TAB PO (09:00)
[2017-10-07] MEDS: CALCITRIOL 0.25 MCG CAP PO (09:00)
[2017-10-07] MEDS: HEPARIN 5,000 UNIT/0.5 ML VIAL SC ×2 (09:00→20:01)
[2017-10-07] MEDS: EZETIMIBE 10 MG TAB PO (09:00)
[2017-10-07] MEDS: BALSAM PERU/CASTOR OIL 60 GM TUBE TOP (09:00)
[2017-10-07 09:52] LABS: B-TYPE NATRIURETIC PEPTIDE 2910 PG/ML (0-450)
[2017-10-07] MEDS: POTASSIUM CHLORIDE 50 ML IVPB ×3 (11:30→15:15)
[2017-10-07] MEDS: PIPER-TAZO 3.375 GM IV (PMX) 100 ML IVPB ×2 (15:15→21:27)
[2017-10-08] MEDS: PANTOPRAZOLE 40 MG INJ IV ×2 (06:05→18:00)
[2017-10-08] MEDS: PIPER-TAZO 3.375 GM IV (PMX) 100 ML IVPB ×3 (06:05→21:30)
[2017-10-08] MEDS: LEVOTHYROXINE 25 MCG TAB PO (06:09)
[2017-10-08 07:51] LABS: WHITE BLOOD COUNT 11.9 10^3/ul (4.8-10.8)
[2017-10-08 07:51] LABS: ABNORMAL IP MESSAGE 1; HEMATOCRIT 27.9 % (42.0-52.0); HEMOGLOBIN 8.9 g/dl (14.0-18.0); MEAN CORPUSCULAR HEMOGLOBIN 27.7 pg (29.0-33.0); MEAN CORPUSCULAR HGB CONC 31.9 g/dl (32.0-37.0); MEAN CORPUSCULAR VOLUME 86.9 fl (82.0-101.0); PLATELET COUNT 237 10^3/UL (140-415); POSITIVE DIFF @See below; RED BLOOD COUNT 3.21 10^6/ul (4.70-6.10); RED CELL DISTRIBUTION WIDTH 16.9 % (11.5-14.5)
[2017-10-08 07:53] LABS: ADD MAN DIFF? YES
[2017-10-08 08:17] LABS: MAGNESIUM 2.1 mg/dl (1.7-2.5)
[2017-10-08 08:17] LABS: PHOSPHORUS 3.9 mg/dl (2.5-4.9)
[2017-10-08] MEDS: ALBUTEROL/IPRATROPIUM (NEB) 3 ML AMP HHN ×4 (08:19→22:25)
[2017-10-08 08:27] LABS: ANION GAP 16 (8-16); BLOOD UREA NITROGEN 13 mg/dl (7-20); CALCIUM 8.3 mg/dl (8.4-10.2); CARBON DIOXIDE 24 mmol/L (21-31); CHLORIDE 112 mmol/L (97-110); CREATININE 1.18 mg/dl (0.61-1.24); GLUCOSE 91 mg/dl (70-220); POTASSIUM 3.6 mmol/L (3.5-5.1); SODIUM 148 mmol/L (135-144)
[2017-10-08] MEDS: GABAPENTIN 100 MG CAP PO (09:00)
[2017-10-08] MEDS: CYANOCOBALAMIN 500 MCG TAB PO (09:00)
[2017-10-08] MEDS: EZETIMIBE 10 MG TAB PO (09:00)
[2017-10-08] MEDS: CALCITRIOL 0.25 MCG CAP PO (09:00)
[2017-10-08] MEDS: HEPARIN 5,000 UNIT/0.5 ML VIAL SC ×2 (09:00→21:28)
[2017-10-08] MEDS: DEXTROSE 5% 1,000 ML IV ×2 (09:06→21:37)
[2017-10-08] MEDS: MUPIROCIN 2% 22 GM OINT TOP ×2 (09:15→21:29)
[2017-10-08] MEDS: BALSAM PERU/CASTOR OIL 60 GM TUBE TOP (09:16)
[2017-10-08 09:34] LABS: ANISOCYTOSIS 1+ (0-0); BAND NEUTROPHILS #M 1.9 10^3/ul (0.0-0.6); BAND NEUTROPHILS % (M) 16 % (0-4); BASOPHIL #M 0.1 10^3/ul (0.0-0.0); BASOPHILS % (M) 1 % (0-2); BURR CELLS 1+ (0-0); LYMPHOCYTES #M 1.4 10^3/ul (0.8-2.9); LYMPHOCYTES % (M) 12 % (15-51); MONOCYTE #M 0.5 10^3/ul (0.3-0.9); MONOCYTES % (M) 5 % (0-11); PLATELET ESTIMATE NORMAL; POIKILOCYTOSIS 1+ (0-0); POLYCHROMASIA 1+ (0-0); SEG NEUT #M 8.1 10^3/ul (1.7-7.5); SEGMENTED NEUTROPHILS (M) % 66 % (39-77); SMUDGE%M 4 % (0-0)
[2017-10-08] MEDS: FENTAnyl 50 MCG/ML VIAL (18:42)
[2017-10-08] MEDS: PROPOFOL 20 ML (18:42)
[2017-10-09] MEDS: DEXTROSE 5% 1,000 ML IV (04:30)
[2017-10-09] MEDS: PANTOPRAZOLE 40 MG INJ IV ×2 (05:32→17:59)
[2017-10-09] MEDS: PIPER-TAZO 3.375 GM IV (PMX) 100 ML IVPB ×3 (05:33→21:25)
[2017-10-09] MEDS: LEVOTHYROXINE 25 MCG TAB PO (07:00)
[2017-10-09 07:27] LABS: ADD MAN DIFF? NO
[2017-10-09 07:36] LABS: ABNORMAL IP MESSAGE 1; BASOPHILS % 0.3 % (0.0-2.0); EOSINOPHILS # 0.5 10^3/ul (0.0-0.5); EOSINOPHILS % 7.6 % (0.0-7.0); HEMATOCRIT 25.2 % (42.0-52.0); HEMOGLOBIN 8.1 g/dl (14.0-18.0); LYMPHOCYTES # 0.8 10^3/ul (0.8-2.9); LYMPHOCYTES % 11.5 % (15.0-51.0); MEAN CORPUSCULAR HGB CONC 32.1 g/dl (32.0-37.0); MEAN CORPUSCULAR VOLUME 87.2 fl (82.0-101.0); MEAN PLATELET VOLUME 9.9 fl (7.4-10.4); MONOCYTE # 0.5 10^3/ul (0.3-0.9); MONOCYTES % 7.1 % (0.0-11.0); NEUTROPHIL # 5.1 10^3/ul (1.6-7.5); NEUTROPHILS % 72.9 % (39.0-77.0); PLATELET COUNT 205 10^3/UL (140-415); POSITIVE DIFF @See below; RED BLOOD COUNT 2.89 10^6/ul (4.70-6.10); RED CELL DISTRIBUTION WIDTH 17.4 % (11.5-14.5)
[2017-10-09 07:36] LABS: WHITE BLOOD COUNT 6.9 10^3/ul (4.8-10.8)
[2017-10-09 08:01] LABS: BLOOD UREA NITROGEN 15 mg/dl (7-20); CALCIUM 8.7 mg/dl (8.4-10.2); CARBON DIOXIDE 28 mmol/L (21-31); CHLORIDE 112 mmol/L (97-110); CREATININE 1.46 mg/dl (0.61-1.24); GLUCOSE 104 mg/dl (70-220); PHOSPHORUS 3.3 mg/dl (2.5-4.9); POTASSIUM 3.1 mmol/L (3.5-5.1)
[2017-10-09 08:08] LABS: ANION GAP 9 (8-16); SODIUM 146 mmol/L (135-144)
[2017-10-09] MEDS: ALBUTEROL/IPRATROPIUM (NEB) 3 ML AMP HHN ×4 (08:44→20:23)
[2017-10-09] MEDS: CALCITRIOL 0.25 MCG CAP PO (09:00)
[2017-10-09] MEDS: GABAPENTIN 100 MG CAP PO (09:16)
[2017-10-09] MEDS: EZETIMIBE 10 MG TAB PO (09:16)
[2017-10-09] MEDS: CYANOCOBALAMIN 500 MCG TAB PO (09:17)
[2017-10-09] MEDS: BALSAM PERU/CASTOR OIL 60 GM TUBE TOP (09:18)
[2017-10-09] MEDS: MUPIROCIN 2% 22 GM OINT TOP ×2 (09:18→21:24)
[2017-10-09] MEDS: HEPARIN 5,000 UNIT/0.5 ML VIAL SC ×2 (09:21→21:23)
[2017-10-09 09:55] LABS: BAND NEUTROPHILS #M 0.3 10^3/ul (0.0-0.6); BAND NEUTROPHILS % (M) 5 % (0-4); ERYTHROBLAST% (NRBC) (M) 1 % (0-0); GIANT THROMBO% (M) 1 % (0-0); LYMPHOCYTES #M 0.5 10^3/ul (0.8-2.9); LYMPHOCYTES % (M) 8 % (15-51); MONOCYTE #M 0.2 10^3/ul (0.3-0.9); MONOCYTES % (M) 3 % (0-11); PLASMA CELLS #M 0.1 10^3/ul (0.0-0.0); PLASMAC%(M) 2 % (0); PLATELET ESTIMATE NORMAL; POIKILOCYTOSIS 1+ (0-0); POLYCHROMASIA 3+ (0-0); SEG NEUT #M 5.7 10^3/ul (1.7-7.5); SEGMENTED NEUTROPHILS (M) % 82 % (39-77); SMUDGE%M 4 % (0-0)
[2017-10-09] MEDS: POTASSIUM CHLORIDE 50 ML IVPB ×3 (09:58→15:01)
[2017-10-10] MEDS: DEXTROSE 5% 1,000 ML IV ×2 (00:30→12:05)
[2017-10-10] MEDS: PANTOPRAZOLE 40 MG INJ IV ×2 (05:20→18:19)
[2017-10-10] MEDS: PIPER-TAZO 3.375 GM IV (PMX) 100 ML IVPB ×3 (05:22→21:20)
[2017-10-10] MEDS: LEVOTHYROXINE 25 MCG TAB PO (07:15)
[2017-10-10] MEDS: ALBUTEROL/IPRATROPIUM (NEB) 3 ML AMP HHN ×4 (08:10→20:58)
[2017-10-10 09:11] LABS: ADD MAN DIFF? NO
[2017-10-10 09:41] LABS: WHITE BLOOD COUNT 7.3 10^3/ul (4.8-10.8)
[2017-10-10 09:41] LABS: BASOPHILS % 0.1 % (0.0-2.0); EOSINOPHILS % 0.4 % (0.0-7.0); HEMATOCRIT 29.3 % (42.0-52.0); HEMOGLOBIN 9.2 g/dl (14.0-18.0); LYMPHOCYTES # 1.5 10^3/ul (0.8-2.9); MEAN CORPUSCULAR HEMOGLOBIN 27.8 pg (29.0-33.0); MEAN CORPUSCULAR HGB CONC 31.4 g/dl (32.0-37.0); MEAN CORPUSCULAR VOLUME 88.5 fl (82.0-101.0); MEAN PLATELET VOLUME 10.2 fl (7.4-10.4); MONOCYTE # 0.6 10^3/ul (0.3-0.9); MONOCYTES % 8.2 % (0.0-11.0); NEUTROPHIL # 5.1 10^3/ul (1.6-7.5); NEUTROPHILS % 69.8 % (39.0-77.0); PLATELET COUNT 204 10^3/UL (140-415); POSITIVE DIFF @See below; RED BLOOD COUNT 3.31 10^6/ul (4.70-6.10); RED CELL DISTRIBUTION WIDTH 17.7 % (11.5-14.5)
[2017-10-10 09:47] LABS: ANION GAP 19 (8-16); BLOOD UREA NITROGEN 15 mg/dl (7-20); CARBON DIOXIDE 26 mmol/L (21-31); CHLORIDE 105 mmol/L (97-110); CREATININE 1.32 mg/dl (0.61-1.24); GLUCOSE 107 mg/dl (70-220); PHOSPHORUS 3.4 mg/dl (2.5-4.9); POTASSIUM 3.6 mmol/L (3.5-5.1); SODIUM 146 mmol/L (135-144)
[2017-10-10] MEDS: CALCITRIOL 0.25 MCG CAP PO (10:19)
[2017-10-10] MEDS: GABAPENTIN 100 MG CAP PO (10:19)
[2017-10-10] MEDS: EZETIMIBE 10 MG TAB PO (10:19)
[2017-10-10] MEDS: CYANOCOBALAMIN 500 MCG TAB PO (10:20)
[2017-10-10] MEDS: MUPIROCIN 2% 22 GM OINT TOP ×2 (10:21→21:20)
[2017-10-10] MEDS: BALSAM PERU/CASTOR OIL 60 GM TUBE TOP (10:22)
[2017-10-10] MEDS: HEPARIN 5,000 UNIT/0.5 ML VIAL SC ×2 (10:24→21:21)
[2017-10-11] MEDS: PANTOPRAZOLE 40 MG INJ IV ×2 (06:00→17:09)
[2017-10-11] MEDS: PIPER-TAZO 3.375 GM IV (PMX) 100 ML IVPB (06:00)
[2017-10-11] MEDS: LEVOTHYROXINE 25 MCG TAB PO (06:00)
[2017-10-11] MEDS: ALBUTEROL/IPRATROPIUM (NEB) 3 ML AMP HHN ×4 (07:45→21:18)
[2017-10-11] MEDS: BALSAM PERU/CASTOR OIL 60 GM TUBE TOP (08:06)
[2017-10-11] MEDS: EZETIMIBE 10 MG TAB PO (08:06)
[2017-10-11] MEDS: CYANOCOBALAMIN 500 MCG TAB PO (08:07)
[2017-10-11] MEDS: GABAPENTIN 100 MG CAP PO (08:07)
[2017-10-11] MEDS: HEPARIN 5,000 UNIT/0.5 ML VIAL SC ×2 (08:08→21:10)
[2017-10-11] MEDS: MUPIROCIN 2% 22 GM OINT TOP ×2 (08:08→21:12)
[2017-10-11] MEDS: CALCITRIOL 0.25 MCG CAP PO ×2 (08:10→10:51)
[2017-10-11 08:43] LABS: ADD MAN DIFF? NO
[2017-10-11 08:52] LABS: WHITE BLOOD COUNT 8.1 10^3/ul (4.8-10.8)
[2017-10-11 08:52] LABS: BASOPHILS % 0.2 % (0.0-2.0); EOSINOPHILS # 0.1 10^3/ul (0.0-0.5); EOSINOPHILS % 0.7 % (0.0-7.0); HEMOGLOBIN 8.9 g/dl (14.0-18.0); LYMPHOCYTES % 25.3 % (15.0-51.0); MEAN CORPUSCULAR HEMOGLOBIN 27.5 pg (29.0-33.0); MEAN CORPUSCULAR HGB CONC 30.7 g/dl (32.0-37.0); MEAN CORPUSCULAR VOLUME 89.5 fl (82.0-101.0); MEAN PLATELET VOLUME 10.3 fl (7.4-10.4); MONOCYTE # 0.5 10^3/ul (0.3-0.9); MONOCYTES % 6.6 % (0.0-11.0); NEUTROPHIL # 5.4 10^3/ul (1.6-7.5); NEUTROPHILS % 66.7 % (39.0-77.0); PLATELET COUNT 190 10^3/UL (140-415); RED BLOOD COUNT 3.24 10^6/ul (4.70-6.10)
[2017-10-11 09:31] LABS: ANION GAP 11 (8-16); BLOOD UREA NITROGEN 18 mg/dl (7-20); CALCIUM 8.5 mg/dl (8.4-10.2); CARBON DIOXIDE 25 mmol/L (21-31); CHLORIDE 112 mmol/L (97-110); GLUCOSE 105 mg/dl (70-220); PHOSPHORUS 3.1 mg/dl (2.5-4.9); POTASSIUM 3.4 mmol/L (3.5-5.1); SODIUM 145 mmol/L (135-144)
[2017-10-11] MEDS: POTASSIUM CHLORIDE 20 MEQ POWDER FOR ORAL SOLN NGT (10:51)
[2017-10-12] MEDS: LEVOTHYROXINE 25 MCG TAB PO (06:38)
[2017-10-12] MEDS: PANTOPRAZOLE 40 MG INJ IV ×2 (06:38→17:54)
[2017-10-12 08:27] LABS: ADD MAN DIFF? NO
[2017-10-12] MEDS: CALCITRIOL 0.25 MCG CAP PO (08:31)
[2017-10-12] MEDS: EZETIMIBE 10 MG TAB PO (08:31)
[2017-10-12] MEDS: CYANOCOBALAMIN 500 MCG TAB PO (08:31)
[2017-10-12] MEDS: GABAPENTIN 100 MG CAP PO (08:31)
[2017-10-12 08:32] LABS: WHITE BLOOD COUNT 6.8 10^3/ul (4.8-10.8)
[2017-10-12 08:32] LABS: BASOPHILS % 0.1 % (0.0-2.0); EOSINOPHILS # 0.1 10^3/ul (0.0-0.5); EOSINOPHILS % 0.7 % (0.0-7.0); HEMATOCRIT 27.9 % (42.0-52.0); HEMOGLOBIN 8.7 g/dl (14.0-18.0); LYMPHOCYTES # 1.2 10^3/ul (0.8-2.9); LYMPHOCYTES % 18.3 % (15.0-51.0); MEAN CORPUSCULAR HEMOGLOBIN 27.4 pg (29.0-33.0); MEAN CORPUSCULAR HGB CONC 31.2 g/dl (32.0-37.0); MEAN PLATELET VOLUME 10.5 fl (7.4-10.4); MONOCYTE # 0.4 10^3/ul (0.3-0.9); MONOCYTES % 6.5 % (0.0-11.0); NEUTROPHILS % 73.7 % (39.0-77.0); PLATELET COUNT 182 10^3/UL (140-415); POSITIVE DIFF @See below; RED BLOOD COUNT 3.17 10^6/ul (4.70-6.10); RED CELL DISTRIBUTION WIDTH 17.1 % (11.5-14.5)
[2017-10-12] MEDS: MUPIROCIN 2% 22 GM OINT TOP ×2 (08:32→20:20)
[2017-10-12] MEDS: BALSAM PERU/CASTOR OIL 60 GM TUBE TOP (08:32)
[2017-10-12] MEDS: HEPARIN 5,000 UNIT/0.5 ML VIAL SC (08:36)
[2017-10-12 08:50] LABS: ANION GAP 10 (8-16); BLOOD UREA NITROGEN 18 mg/dl (7-20); CALCIUM 8.3 mg/dl (8.4-10.2); CARBON DIOXIDE 25 mmol/L (21-31); CHLORIDE 110 mmol/L (97-110); CREATININE 0.95 mg/dl (0.61-1.24); GLUCOSE 100 mg/dl (70-220); POTASSIUM 3.3 mmol/L (3.5-5.1); SODIUM 142 mmol/L (135-144)
[2017-10-12] MEDS: ALBUTEROL/IPRATROPIUM (NEB) 3 ML AMP HHN ×4 (09:15→21:28)
[2017-10-12 09:35] LABS: ANISOCYTOSIS 1+ (0-0); BAND NEUTROPHILS #M 0.5 10^3/ul (0.0-0.6); BAND NEUTROPHILS % (M) 8 % (0-4); EOSINOPHILS % (M) 1 % (0-7); GIANT THROMBO% (M) 1 % (0-0); LYMPHOCYTES #M 1.5 10^3/ul (0.8-2.9); LYMPHOCYTES % (M) 23 % (15-51); MONOCYTE #M 0.3 10^3/ul (0.3-0.9); MONOCYTES % (M) 5 % (0-11); MYELOCYTES % (M) 1 % (0-0); PLATELET ESTIMATE NORMAL; POIKILOCYTOSIS 2+ (0-0); POLYCHROMASIA 3+ (0-0); SEG NEUT #M 4.3 10^3/ul (1.6-7.5); SEGMENTED NEUTROPHILS (M) % 62 % (39-77); SMUDGE%M 8 % (0-0)
[2017-10-12] MEDS: POTASSIUM CHLORIDE 50 ML IVPB (22:51)
[2017-10-13] MEDS: POTASSIUM CHLORIDE 50 ML IVPB (00:24)
[2017-10-13] MEDS: LEVOTHYROXINE 25 MCG TAB PO (05:35)
[2017-10-13] MEDS: PANTOPRAZOLE 40 MG INJ IV ×2 (05:35→17:18)
[2017-10-13 08:16] LABS: ADD MAN DIFF? NO
[2017-10-13 08:23] LABS: WHITE BLOOD COUNT 5.3 10^3/ul (4.8-10.8)
[2017-10-13 08:23] LABS: BASOPHILS % 0.2 % (0.0-2.0); EOSINOPHILS # 0.1 10^3/ul (0.0-0.5); EOSINOPHILS % 1.3 % (0.0-7.0); HEMATOCRIT 27.3 % (42.0-52.0); HEMOGLOBIN 8.7 g/dl (14.0-18.0); LYMPHOCYTES # 1.2 10^3/ul (0.8-2.9); LYMPHOCYTES % 23.3 % (15.0-51.0); MEAN CORPUSCULAR HEMOGLOBIN 27.9 pg (29.0-33.0); MEAN CORPUSCULAR HGB CONC 31.9 g/dl (32.0-37.0); MEAN CORPUSCULAR VOLUME 87.5 fl (82.0-101.0); MEAN PLATELET VOLUME 10.1 fl (7.4-10.4); MONOCYTE # 0.4 10^3/ul (0.3-0.9); MONOCYTES % 7.3 % (0.0-11.0); NEUTROPHIL # 3.6 10^3/ul (1.6-7.5); NEUTROPHILS % 67.5 % (39.0-77.0); PLATELET COUNT 186 10^3/UL (140-415); RED BLOOD COUNT 3.12 10^6/ul (4.70-6.10); RED CELL DISTRIBUTION WIDTH 16.9 % (11.5-14.5)
[2017-10-13 08:52] LABS: ANION GAP 8 (8-16); BLOOD UREA NITROGEN 15 mg/dl (7-20); CALCIUM 8.3 mg/dl (8.4-10.2); CARBON DIOXIDE 28 mmol/L (21-31); CHLORIDE 108 mmol/L (97-110); CREATININE 0.94 mg/dl (0.61-1.24); GLUCOSE 96 mg/dl (70-220); POTASSIUM 3.7 mmol/L (3.5-5.1); SODIUM 140 mmol/L (135-144)
[2017-10-13] MEDS: CYANOCOBALAMIN 500 MCG TAB PO (09:16)
[2017-10-13] MEDS: EZETIMIBE 10 MG TAB PO (09:16)
[2017-10-13] MEDS: BALSAM PERU/CASTOR OIL 60 GM TUBE TOP (09:16)
[2017-10-13] MEDS: CALCITRIOL 0.25 MCG CAP PO (09:16)
[2017-10-13] MEDS: MUPIROCIN 2% 22 GM OINT TOP ×2 (09:17→21:06)
[2017-10-13] MEDS: ALBUTEROL/IPRATROPIUM (NEB) 3 ML AMP HHN ×4 (09:20→21:32)
[2017-10-13] MEDS: MAGNESIUM HYDROXIDE 30ML CUP PO (17:18)
[2017-10-14] MEDS: PANTOPRAZOLE 40 MG INJ IV ×2 (05:43→17:24)
[2017-10-14] MEDS: LEVOTHYROXINE 25 MCG TAB PO ×2 (05:44→08:54)
[2017-10-14 07:42] LABS: HEMATOCRIT 25.7 % (42.0-52.0); HEMOGLOBIN 8.3 g/dl (14.0-18.0); MEAN CORPUSCULAR HEMOGLOBIN 27.9 pg (29.0-33.0); MEAN CORPUSCULAR HGB CONC 32.3 g/dl (32.0-37.0); MEAN CORPUSCULAR VOLUME 86.2 fl (82.0-101.0); PLATELET COUNT 220 10^3/UL (140-415); POSITIVE DIFF @See below; RED BLOOD COUNT 2.98 10^6/ul (4.70-6.10); RED CELL DISTRIBUTION WIDTH 16.6 % (11.5-14.5)
[2017-10-14 07:42] LABS: WHITE BLOOD COUNT 11.5 10^3/ul (4.8-10.8)
[2017-10-14 07:59] LABS: ADD MAN DIFF? YES
[2017-10-14 08:16] LABS: ANION GAP 8 (8-16); BLOOD UREA NITROGEN 14 mg/dl (7-20); CALCIUM 8.2 mg/dl (8.4-10.2); CARBON DIOXIDE 27 mmol/L (21-31); CHLORIDE 105 mmol/L (97-110); CREATININE 0.93 mg/dl (0.61-1.24); GLUCOSE 84 mg/dl (70-220); POTASSIUM 3.9 mmol/L (3.5-5.1); SODIUM 136 mmol/L (135-144)
[2017-10-14] MEDS: ALBUTEROL/IPRATROPIUM (NEB) 3 ML AMP HHN ×4 (08:19→20:49)
[2017-10-14] MEDS: EZETIMIBE 10 MG TAB PO (08:54)
[2017-10-14] MEDS: CALCITRIOL 0.25 MCG CAP PO (08:54)
[2017-10-14] MEDS: CYANOCOBALAMIN 500 MCG TAB PO (08:55)
[2017-10-14] MEDS: MUPIROCIN 2% 22 GM OINT TOP ×2 (08:55→21:09)
[2017-10-14] MEDS: BALSAM PERU/CASTOR OIL 60 GM TUBE TOP (08:55)
[2017-10-14 09:47] LABS: ANISOCYTOSIS 1+ (0-0); BAND NEUTROPHILS #M 1.3 10^3/ul (0.0-0.6); BAND NEUTROPHILS % (M) 12 % (0-4); LYMPHOCYTES #M 1.2 10^3/ul (0.8-2.9); LYMPHOCYTES % (M) 11 % (15-51); MONOCYTE #M 0.5 10^3/ul (0.3-0.9); MONOCYTES % (M) 5 % (0-11); PLATELET ESTIMATE NORMAL; POLYCHROMASIA 1+ (0-0); SEG NEUT #M 8.4 10^3/ul (1.6-7.5); SEGMENTED NEUTROPHILS (M) % 72 % (39-77); SMUDGE%M 2 % (0-0)
[2017-10-15] MEDS: PANTOPRAZOLE 40 MG INJ IV ×2 (05:14→17:32)
[2017-10-15] MEDS: ALBUTEROL/IPRATROPIUM (NEB) 3 ML AMP HHN ×4 (09:11→22:01)
[2017-10-15 09:27] LABS: ADD MAN DIFF? NO
[2017-10-15 09:32] LABS: WHITE BLOOD COUNT 11.7 10^3/ul (4.8-10.8)
[2017-10-15 09:32] LABS: BASOPHILS % 0.3 % (0.0-2.0); EOSINOPHILS # 0.1 10^3/ul (0.0-0.5); EOSINOPHILS % 0.4 % (0.0-7.0); HEMATOCRIT 27.5 % (42.0-52.0); HEMOGLOBIN 8.8 g/dl (14.0-18.0); LYMPHOCYTES # 1.5 10^3/ul (0.8-2.9); MEAN CORPUSCULAR HEMOGLOBIN 27.5 pg (29.0-33.0); MEAN CORPUSCULAR VOLUME 85.9 fl (82.0-101.0); MEAN PLATELET VOLUME 9.7 fl (7.4-10.4); MONOCYTE # 0.5 10^3/ul (0.3-0.9); NEUTROPHIL # 9.6 10^3/ul (1.6-7.5); NEUTROPHILS % 81.8 % (39.0-77.0); PLATELET COUNT 238 10^3/UL (140-415); POSITIVE DIFF @See below; RED CELL DISTRIBUTION WIDTH 16.5 % (11.5-14.5)
[2017-10-15 09:53] LABS: ANION GAP 10 (8-16); BLOOD UREA NITROGEN 16 mg/dl (7-20); CALCIUM 8.2 mg/dl (8.4-10.2); CARBON DIOXIDE 26 mmol/L (21-31); CHLORIDE 101 mmol/L (97-110); CREATININE 0.87 mg/dl (0.61-1.24); GLUCOSE 105 mg/dl (70-220); POTASSIUM 3.8 mmol/L (3.5-5.1); SODIUM 133 mmol/L (135-144)
[2017-10-15] MEDS: CALCITRIOL 0.25 MCG CAP PO (10:02)
[2017-10-15] MEDS: CYANOCOBALAMIN 500 MCG TAB PO (10:03)
[2017-10-15] MEDS: LEVOTHYROXINE 25 MCG TAB PO (10:03)
[2017-10-15] MEDS: EZETIMIBE 10 MG TAB PO (10:03)
[2017-10-15] MEDS: BALSAM PERU/CASTOR OIL 60 GM TUBE TOP (10:04)
[2017-10-15] MEDS: MUPIROCIN 2% 22 GM OINT TOP ×2 (10:04→21:07)
[2017-10-16] MEDS: PANTOPRAZOLE 40 MG INJ IV ×2 (05:39→17:33)
[2017-10-16] MEDS: ALBUTEROL/IPRATROPIUM (NEB) 3 ML AMP HHN ×4 (08:17→21:31)
[2017-10-16 08:27] LABS: ADD MAN DIFF? NO
[2017-10-16 08:29] LABS: WHITE BLOOD COUNT 8.8 10^3/ul (4.8-10.8)
[2017-10-16 08:29] LABS: BASOPHILS % 0.1 % (0.0-2.0); EOSINOPHILS # 0.1 10^3/ul (0.0-0.5); EOSINOPHILS % 1.4 % (0.0-7.0); HEMATOCRIT 25.5 % (42.0-52.0); HEMOGLOBIN 8.1 g/dl (14.0-18.0); LYMPHOCYTES % 11.6 % (15.0-51.0); MEAN CORPUSCULAR HEMOGLOBIN 27.6 pg (29.0-33.0); MEAN CORPUSCULAR HGB CONC 31.8 g/dl (32.0-37.0); MEAN PLATELET VOLUME 9.4 fl (7.4-10.4); MONOCYTE # 0.5 10^3/ul (0.3-0.9); NEUTROPHIL # 7.1 10^3/ul (1.6-7.5); NEUTROPHILS % 80.4 % (39.0-77.0); PLATELET COUNT 257 10^3/UL (140-415); RED BLOOD COUNT 2.93 10^6/ul (4.70-6.10); RED CELL DISTRIBUTION WIDTH 15.9 % (11.5-14.5)
[2017-10-16 09:00] LABS: PHOSPHORUS 3.2 mg/dl (2.5-4.9)
[2017-10-16 09:00] LABS: MAGNESIUM 1.9 mg/dl (1.7-2.5)
[2017-10-16 09:12] LABS: ANION GAP 8 (8-16); BLOOD UREA NITROGEN 16 mg/dl (7-20); CALCIUM 8.4 mg/dl (8.4-10.2); CARBON DIOXIDE 28 mmol/L (21-31); CHLORIDE 101 mmol/L (97-110); CREATININE 0.74 mg/dl (0.61-1.24); GLUCOSE 101 mg/dl (70-220); POTASSIUM 3.6 mmol/L (3.5-5.1); SODIUM 133 mmol/L (135-144)
[2017-10-16] MEDS: CYANOCOBALAMIN 500 MCG TAB PO (09:58)
[2017-10-16] MEDS: EZETIMIBE 10 MG TAB PO (09:58)
[2017-10-16] MEDS: CALCITRIOL 0.25 MCG CAP PO (09:58)
[2017-10-16] MEDS: MUPIROCIN 2% 22 GM OINT TOP ×2 (10:00→21:21)
[2017-10-16] MEDS: BALSAM PERU/CASTOR OIL 60 GM TUBE TOP (10:00)
[2017-10-16] MEDS: ACETYLCYSTEINE 20% 4 ML VIAL NEB ×4 (11:03→21:31)
[2017-10-17] MEDS: ALBUTEROL/IPRATROPIUM (NEB) 3 ML AMP HHN ×6 (01:42→20:25)
[2017-10-17] MEDS: ACETYLCYSTEINE 20% 4 ML VIAL NEB ×6 (01:42→20:25)
[2017-10-17] MEDS: PANTOPRAZOLE 40 MG INJ IV ×2 (05:55→18:22)
[2017-10-17] MEDS: LEVOTHYROXINE 25 MCG TAB PO (05:55)
[2017-10-17 08:11] LABS: ANION GAP 12 (8-16); BLOOD UREA NITROGEN 15 mg/dl (7-20); CALCIUM 8.7 mg/dl (8.4-10.2); CARBON DIOXIDE 27 mmol/L (21-31); CHLORIDE 102 mmol/L (97-110); GLUCOSE 101 mg/dl (70-220); PHOSPHORUS 2.9 mg/dl (2.5-4.9); POTASSIUM 3.9 mmol/L (3.5-5.1); SODIUM 137 mmol/L (135-144)
[2017-10-17] MEDS: EZETIMIBE 10 MG TAB PO (09:44)
[2017-10-17] MEDS: CYANOCOBALAMIN 500 MCG TAB PO (09:44)
[2017-10-17] MEDS: CALCITRIOL 0.25 MCG CAP PO (09:44)
[2017-10-17] MEDS: MUPIROCIN 2% 22 GM OINT TOP ×2 (09:45→21:48)
[2017-10-17] MEDS: BALSAM PERU/CASTOR OIL 60 GM TUBE TOP (09:45)
[2017-10-17] MEDS: COLLAGENASE 30 GM TUBE TOP (12:43)
[2017-10-18] MEDS: ACETYLCYSTEINE 20% 4 ML VIAL NEB ×6 (00:55→20:51)
[2017-10-18] MEDS: ALBUTEROL/IPRATROPIUM (NEB) 3 ML AMP HHN ×6 (00:55→20:50)
[2017-10-18] MEDS: PANTOPRAZOLE 40 MG INJ IV ×2 (06:10→18:14)
[2017-10-18] MEDS: LEVOTHYROXINE 25 MCG TAB PO (06:14)
[2017-10-18 08:38] LABS: ADD MAN DIFF? NO
[2017-10-18] MEDS: CALCITRIOL 0.25 MCG CAP PO (08:47)
[2017-10-18] MEDS: EZETIMIBE 10 MG TAB PO (08:47)
[2017-10-18] MEDS: CYANOCOBALAMIN 500 MCG TAB PO (08:47)
[2017-10-18] MEDS: COLLAGENASE 30 GM TUBE TOP (08:50)
[2017-10-18] MEDS: BALSAM PERU/CASTOR OIL 60 GM TUBE TOP (08:50)
[2017-10-18] MEDS: MUPIROCIN 2% 22 GM OINT TOP ×2 (08:50→21:24)
[2017-10-18 09:02] LABS: WHITE BLOOD COUNT 7.6 10^3/ul (4.8-10.8)
[2017-10-18 09:02] LABS: BASOPHILS % 0.4 % (0.0-2.0); EOSINOPHILS # 0.1 10^3/ul (0.0-0.5); EOSINOPHILS % 1.5 % (0.0-7.0); HEMATOCRIT 26.6 % (42.0-52.0); HEMOGLOBIN 8.4 g/dl (14.0-18.0); LYMPHOCYTES # 1.2 10^3/ul (0.8-2.9); LYMPHOCYTES % 16.3 % (15.0-51.0); MEAN CORPUSCULAR HEMOGLOBIN 27.2 pg (29.0-33.0); MEAN CORPUSCULAR HGB CONC 31.6 g/dl (32.0-37.0); MEAN CORPUSCULAR VOLUME 86.1 fl (82.0-101.0); MEAN PLATELET VOLUME 10.2 fl (7.4-10.4); MONOCYTE # 0.6 10^3/ul (0.3-0.9); MONOCYTES % 8.2 % (0.0-11.0); NEUTROPHIL # 5.5 10^3/ul (1.6-7.5); NEUTROPHILS % 72.9 % (39.0-77.0); POSITIVE DIFF @See below; RED BLOOD COUNT 3.09 10^6/ul (4.70-6.10); RED CELL DISTRIBUTION WIDTH 15.7 % (11.5-14.5)
[2017-10-18 09:05] LABS: PLATELET COUNT 363 10^3/UL (140-415)
[2017-10-18 09:22] LABS: ANION GAP 9 (8-16); BLOOD UREA NITROGEN 16 mg/dl (7-20); CALCIUM 8.6 mg/dl (8.4-10.2); CARBON DIOXIDE 29 mmol/L (21-31); CHLORIDE 102 mmol/L (97-110); GLUCOSE 125 mg/dl (70-220); POTASSIUM 3.6 mmol/L (3.5-5.1); SODIUM 136 mmol/L (135-144)
[2017-10-18 09:28] LABS: PHOSPHORUS 2.3 mg/dl (2.5-4.9)
[2017-10-18 09:28] LABS: MAGNESIUM 1.9 mg/dl (1.7-2.5)
[2017-10-19] MEDS: ALBUTEROL/IPRATROPIUM (NEB) 3 ML AMP HHN ×4 (00:22→16:36)
[2017-10-19] MEDS: ACETYLCYSTEINE 20% 4 ML VIAL NEB ×5 (00:22→16:36)
[2017-10-19] MEDS ORDERED: ADENOSINE 2 ML (03:09)
[2017-10-19] MEDS ORDERED: METOPROLOL 5 MG INJ (03:20)
[2017-10-19] MEDS: METOPROLOL 5 MG INJ IV (03:26)
[2017-10-19] MEDS: ADENOSINE 6 MG INJ IV (03:29)
[2017-10-19] MEDS: PANTOPRAZOLE 40 MG INJ IV ×2 (06:28→18:00)
[2017-10-19] MEDS: LEVOTHYROXINE 25 MCG TAB PO (07:00)
[2017-10-19] MEDS: CALCITRIOL 0.25 MCG CAP PO (08:35)
[2017-10-19] MEDS: FUROSEMIDE 40 MG INJ IV (08:35)
[2017-10-19] MEDS: EZETIMIBE 10 MG TAB PO (08:36)
[2017-10-19] MEDS: CYANOCOBALAMIN 500 MCG TAB PO (08:36)
[2017-10-19] MEDS: BALSAM PERU/CASTOR OIL 60 GM TUBE TOP (08:41)
[2017-10-19] MEDS: MUPIROCIN 2% 22 GM OINT TOP (08:41)
[2017-10-19] MEDS: COLLAGENASE 30 GM TUBE TOP (08:41)
[2017-10-19] MEDS ORDERED: ONDANSETRON 4 MG INJ IV (16:00)
[2017-10-19] MEDS ORDERED: ATROPINE 1% 5 ML OPH SL ×2 (16:00→17:49)
[2017-10-19] MEDS ORDERED: DIMETHICONE STICK TOP (16:00)
[2017-10-19] MEDS ORDERED: ALBUTEROL/IPRATROPIUM (NEB) 3 ML AMP HHN (16:00)
[2017-10-19] MEDS ORDERED: LORAZEPAM 2 MG INJ IV (16:00)
[2017-10-19] MEDS ORDERED: ARTIFICIAL TEARS 15 ML OPH BOTH EYES (16:00)
[2017-10-19] MEDS: morphine (DRIP) 100 MG/100 ML 100 ML IV ×2 (17:02→18:58)
[2017-10-19] MEDS: SCOPOLAMINE 1.5 MG PATCH TRANSDERM (17:46)
[2017-10-20] MEDS: PANTOPRAZOLE 40 MG INJ IV ×2 (06:20→18:00)
[2017-10-20 07:59] LABS: CHLORIDE 101 mmol/L (97-110); CREATININE 1.25 mg/dl (0.61-1.24); POTASSIUM 4.1 mmol/L (3.5-5.1); SODIUM 137 mmol/L (135-144)
[2017-10-20 08:04] LABS: ANION GAP 10 (8-16); CARBON DIOXIDE 30 mmol/L (21-31)
[2017-10-20 08:13] LABS: BLOOD UREA NITROGEN 27 mg/dl (7-20); GLUCOSE 86 mg/dl (70-220); PHOSPHORUS 3.4 mg/dl (2.5-4.9)
[2017-10-20] MEDS: morphine (DRIP) 100 MG/100 ML 100 ML IV ×5 (08:36→18:31)
[2017-10-20] MEDS: BALSAM PERU/CASTOR OIL 60 GM TUBE TOP (09:00)
[2017-10-20] MEDS ORDERED: LORAZEPAM 2 MG INJ IV (11:30)
[2017-10-20] MEDS: LORAZEPAM 2 MG INJ IV ×3 (12:59→23:41)
[2017-10-21] MEDS: morphine (DRIP) 100 MG/100 ML 100 ML IV ×2 (05:00→18:37)
[2017-10-21] MEDS: PANTOPRAZOLE 40 MG INJ IV (05:06)
[2017-10-21] MEDS: LORAZEPAM 2 MG INJ IV ×3 (05:07→18:30)
[2017-10-21] MEDS: BALSAM PERU/CASTOR OIL 60 GM TUBE TOP (09:00)
[2017-10-22] MEDS: LORAZEPAM 2 MG INJ IV ×4 (00:08→17:57)
[2017-10-22] MEDS: PANTOPRAZOLE 40 MG INJ IV (05:41)
[2017-10-22] MEDS: morphine (DRIP) 100 MG/100 ML 100 ML IV ×2 (06:44→18:09)
[2017-10-22] MEDS: ACETAMINOPHEN 650 MG SUPP PR (08:20)
[2017-10-22] MEDS: BALSAM PERU/CASTOR OIL 60 GM TUBE TOP (17:00)
[2017-10-22] MEDS: SCOPOLAMINE 1.5 MG PATCH TRANSDERM (17:55)
[2017-10-23] MEDS: LORAZEPAM 2 MG INJ IV ×4 (05:40→18:01)
[2017-10-23] MEDS: PANTOPRAZOLE 40 MG INJ IV (05:49)
[2017-10-23] MEDS: morphine (DRIP) 100 MG/100 ML 100 ML IV ×2 (08:00→20:29)
[2017-10-23] MEDS: BALSAM PERU/CASTOR OIL 60 GM TUBE TOP (13:45)
[2017-10-24] MEDS: LORAZEPAM 2 MG INJ IV ×4 (00:13→18:24)
[2017-10-24] MEDS: PANTOPRAZOLE 40 MG INJ IV (05:28)
[2017-10-24] MEDS: morphine (DRIP) 100 MG/100 ML 100 ML IV ×2 (07:35→18:10)
[2017-10-24] MEDS: BALSAM PERU/CASTOR OIL 60 GM TUBE TOP (09:00)
[2017-10-25] MEDS: LORAZEPAM 2 MG INJ IV ×5 (00:11→23:29)
[2017-10-25] MEDS: morphine (DRIP) 100 MG/100 ML 100 ML IV ×2 (04:54→16:20)
[2017-10-25] MEDS: PANTOPRAZOLE 40 MG INJ IV (05:28)
[2017-10-25] MEDS: BALSAM PERU/CASTOR OIL 60 GM TUBE TOP (09:00)
[2017-10-25] MEDS: SCOPOLAMINE 1.5 MG PATCH TRANSDERM (18:21)
[2017-10-26] MEDS: morphine (DRIP) 100 MG/100 ML 100 ML IV ×2 (02:36→11:46)
[2017-10-26] MEDS: LORAZEPAM 2 MG INJ IV ×2 (06:11→13:40)
[2017-10-26] MEDS: PANTOPRAZOLE 40 MG INJ IV (06:13)
[2017-10-26] MEDS: BALSAM PERU/CASTOR OIL 60 GM TUBE TOP (08:24)
== END 2017-10-26 15:56 | disposition expired | DRG 640 ==
LOC: ICU 09-30 00:31 → E/R 19:47 → MS4 10-02 11:34 → MS2 10-20 20:00
PROVIDERS: Hospitalist
PROC: 0DB68ZX Excision of Stomach, Via Natural or Artificial Opening Endoscopic, Diagnostic (ICD-10-PCS; principal; 2017-10-08 18:00)
DX: E87.0 Hyperosmolality and hypernatremia (principal); I21.A1 Myocardial infarction type 2; E86.0 Dehydration; I63.312 Cerebral infarction due to thrombosis of left middle cerebral artery; J96.01 Acute respiratory failure with hypoxia; J69.0 Pneumonitis due to inhalation of food and vomit; G92 Toxic encephalopathy; A41.9 Sepsis, unspecified organism; E43 Unspecified severe protein-calorie malnutrition; G30.9 Alzheimer's disease, unspecified; F02.80 Dementia in other diseases classified elsewhere, unspecified severity, without behavioral disturbance, psychotic disturbance, mood disturbance, and anxiety; J18.9 Pneumonia, unspecified organism; N17.9 Acute kidney failure, unspecified; N39.0 Urinary tract infection, site not specified; I16.9 Hypertensive crisis, unspecified; K92.0 Hematemesis; K22.10 Ulcer of esophagus without bleeding; E87.2 Acidosis; R00.1 Bradycardia, unspecified; E87.6 Hypokalemia; Z66 Do not resuscitate; Z51.5 Encounter for palliative care; I49.5 Sick sinus syndrome; B96.20 Unspecified Escherichia coli [E. coli] as the cause of diseases classified elsewhere
CPT/HCPCS: 36415; 70450; 70551; 71045; 80048; 80053; 80061; 80306; 80307; 81001; 81003; 82043; 82140; 82550; 82553; 82728; 82962; 83036; 83540; 83605; 83735; 83880; 83930; 83935; 84100; 84155; 84300; 84436; 84439; 84443; 84479; 84484; 85025; 87040; 87081; 87086; 88305; 88312; 92526; 92610; 93005; 93306; 93970; 93971; 94640; 94664; 96374; 96375; 96376; 99291-25